=== PATIENT | female | born 1975 | race Two or more races ===

== ENCOUNTER 2024-03-10 06:21 | Inpatient (IN) | payer BC ==
[~2024-03-10] VITALS: Ht 167.6 cm; Wt 59.2 kg
[2024-03-10] VITALS (7 sets, daily range): BP systolic 128–144; BP diastolic 70–81; PULSE 97–121; RESP 13–20; TEMP 97.6–98.4; O2SAT 97–99
[~2024-03-10 06:21] MED LIST: METH-1181 PO; PAR20T PO; PERCOT PO; TRAZ-181 PO
[2024-03-10] MEDS ORDERED: ONDANSETRON HCL 4 MG/2 ML VIAL ONE (07:04)
[2024-03-10] MEDS ORDERED: PROPOFOL 10 MG/ML 20 ML IV ONE ×2 (07:04→09:47)
[2024-03-10] MEDS ORDERED: KETAMINE 50mg/ML 1ml syringe ONE (07:04)
[2024-03-10] MEDS ORDERED: fentaNYL CITRATE 100 MCG/2 ML VL ONE ×2 (07:04)
[2024-03-10] MEDS ORDERED: MIDAZOLAM HCL 2MG/2ML 2ml VIAL (1mg/ml) ONE (07:04)
[2024-03-10] MEDS ORDERED: LIDOCAINE 1% INJ PF 5ML AMP ONE (07:04)
[2024-03-10] MEDS ORDERED: SODIUM CHLORIDE LOCK 50 ML ONE (07:04)
[2024-03-10] MEDS ORDERED: MEPERIDINE HCL (50 MG/ML) 1 ML VIAL ONE (07:04)
[2024-03-10] MEDS ORDERED: fentaNYL CITRATE 100 MCG/2 ML VL IV PRN (07:30)
[2024-03-10] MEDS ORDERED: MORPHINE SULFATE INJ 2 MG/ml SYRG IV PRN ×2 (07:30→11:00)
[2024-03-10] MEDS ORDERED: HYDROmorphone HCL 2 MG/ML VL/or syr IV PRN (07:30)
--- NOTE | 2024-03-10 07:37 | DVHHP2 ---
History Allergies: Coded Allergies: NO KNOWN ALLERGIES (Unverified , 02/25/24) Chief Complaint: back pain, left leg pain Present Illness(Onset/Duration Patient arrived today for elective spine surgery with dr harden for hardware removal placed in apr 2023 Past Surgical History: Other (prior lumbar surgery ) Exam Exam General Appearance: Normal HEENT: Normal ENT Inspection Neck: None, Normal Respiratory: No Accessory Muscle Use, No Respiratory Distress Cardiovascular: No Edema, No JVD Gastrointestinal: none Genitalia: Deferred Pelvic: Deferred Rectal: Deferred Extremities: Normal capillary refill, Normal inspection Neurologic: No Motor Deficits (pain to left leg) Skin: Dry, Normal Color Plan Additional comments: Elective surgery with Dr Harden for deep hardware removal EVELYNE ARENAS NP Mar 10, 2024 07:37
[2024-03-10] MEDS: LIDOCAINE W/ EPINEPHRINE 1% 20ML VIAL ONE (08:29)
[2024-03-10] MEDS ORDERED: NITROGLYCERIN 0.4 MG SL TAB SL PRN (11:00)
[2024-03-10] MEDS ORDERED: ONDANSETRON HCL 4 MG/2 ML VIAL IV PRN (11:00)
[2024-03-10] MEDS ORDERED: ACETAMINOPHEN 325 MG TAB PO PRN (11:00)
--- NOTE | 2024-03-10 11:11 | DVHOP2 ---
Operative Report - 2 Report Details Date: 03/10/24 Preop Diagnosis: retained painful hardware lumbar spine Postop Diagnosis: same as pre op Surgeon: Ubaldo Harden MD Garment Form Assembler: Thuy Gross NP Anesthesiologist: Randy Anesthesia: General Consent: The patient was informed of the risks and benefits of the procedure. These include but are not limited to complications of anesthesia, postoperative infection, incomplete relief of symptoms, recurrence of symptoms, damage to blood vessels, nerves and tendons, deep venous thrombosis, pulmonary embolism and possible need for repeat surgery in the future. Name of Procedure Performed see detailed note Procedure Details Procedure Details: Pre op diagnosis: retained painful hardware lumbar spine post op diagnosis: retained painful hardware lumbar spine Procedure: removal of retained pedicle screw construct lumbar spine surgeon: Dr. Harden Assist: Thuy gross NP Procedure Note: Patient was seen in the Pre Anesthesia Care Unit (PACU) and the operative site was initialed by me. All questions were answered to the patients satisfaction and chart reviewed. The patient was taken to the operative room where pre- operative antibiotics were given 30 minutes prior to incision. General anesthesia was induced and neuro-monitoring leads placed. Maravilla catheter was placed. The patient was turned prone onto the I-Lamberto spinal table. While positioning, I made sure that the belly was free to allow proper expansion of the lungs. The hips were extended and all bony prominences padded. The shoulders were abducted 80 degree and the elbows flexed 100 degrees with no tension on the brachial plexus. I check the foot arterial pulses and they were palpable. The patient was prepped and draped and time out was taken at this time per usual protocol. At this time, the C-arm fluoroscope was brought in and was used to cat the incision borders proximally and distally. I marked out the old incision and brought in a Saniya to localized the pedicle screw construct. I jaeger an incision using a 10 blade down to the lumbodorsal fascia. Using bovie electrocautery, I incised through the fascia na dlasterally localizing the pedicle screw constructs on each side. I removed them without difficulty. I sent one screw for culture as a precaution I used irisept and a 50-50 peroxide solution and then placed deep hemovac drains. I used 0 vicryl to close the deep fascia and then 2-0 vicryl for SQ tissue then running nylon to close. FABIAN dressing then extubated and taken to pacu in unremarkable condition. Condition Good Disposition Still a Patient UBALDO HARDEN MD Mar 10, 2024 11:11
[2024-03-10] MEDS: HYDROmorphone HCL 2 MG/ML VL/or syr IV PRN (11:22)
[2024-03-10] MEDS: ACETAMINOPHEN IV 100 ML IV ONE (11:41)
[2024-03-10] MEDS: ACETAMINOPHEN IV 1000 MG/100ML (10MG/ML) IV PRN (11:45)
[2024-03-10] MEDS: KETOROLAC TROMETH 30 MG/ML 1ML VIAL IV ONE (12:10)
[2024-03-10] MEDS: LIDOCAINE 2% JELLY 11ml (GLYDO) ONE (12:31)
[2024-03-10] MEDS: TRANEXAMIC ACID 20 ML ONE (12:31)
[2024-03-10] MEDS: levoFLOXacin 500MG 100 ML IV ONE (12:31)
[2024-03-10] MEDS: SUCCINYLCHOLINE CHLORIDE 20 MG/ML 10ML VIAL IV ONE (12:32)
[2024-03-10] MEDS: ceFAZolin 2 GM/D5W100ml 100 ML IV ONE (12:32)
[2024-03-10] MEDS: ROCURONIUM 10MG/ML 10ML VIAL IV ONE (12:32)
[2024-03-10] MEDS: METOCLOPRAMIDE HCL 5MG/ml INJ 2ml VIAL IV ONE (12:32)
[2024-03-10] MEDS: HYDROcodone-ACET 10/325MG TAB PO PRN (14:10)
[2024-03-10] MEDS: CYCLOBENZAPRINE HCL 10 MG TAB PO SCH (14:10)
[2024-03-10] MEDS: D5W/SOD CHLO 0.9% 1,000 ML IV SCH (14:12)
[2024-03-10] MEDS: ceFAZolin 1GM/50ML 50 ML IV SCH (14:16)
[2024-03-10] MEDS: MORPHINE SULFATE INJ 2 MG/ml SYRG IV PRN (16:45)
[2024-03-10] MEDS: DOCUSATE SOD 100 MG CAP PO SCH (21:48)
[2024-03-11] VITALS (8 sets, daily range): BP systolic 110–141; BP diastolic 65–76; PULSE 72–94; RESP 12–20; TEMP 97.7–98.9; O2SAT 90–100
--- NOTE | 2024-03-11 09:25 | DVH ---
C-ARM FLUOROSCOPY: PROCEDURE: Spinal hardware removal FLUOROSCOPY TIME: 18 seconds
--- NOTE | 2024-03-11 09:25 | DVH ---
C-ARM FLUOROSCOPY: PROCEDURE: Spinal hardware removal FLUOROSCOPY TIME: 18 seconds
[2024-03-11] MEDS: MORPHINE SULFATE INJ 2 MG/ml SYRG IV ONE (13:30)
--- NOTE | 2024-03-11 15:02 | DVHINCON2 ---
Date Seen: Mar 11, 2024 Referring Physician Orthopedic spine surgery,Dr Ubaldo Harden. Reason for Consultation Medical management. History of Present Illness 48-year-old female with a known history of lumbar radiculopathy status post lumbar spine surgery in April,, but brought in by orthopedic spine/GFR painful hardware removal from the previous site of surgery. Patient stated that she was having back pain with radiation to the left lower extremity has right lower extremity. Patient denies any known medical history besides chronic i nsomnia and anxiety disorder. Past Medical History Anxiety disorder Chronic insomnia Chronic back pain Past Surgical History lumbar radiculopathy status post L3-4-5 spine surgery in April,. Status post painful hardware removal from the lumbar [id number]. Family History: Hypertension G8 MOTHER G8 FATHER Allergies: Coded Allergies: NO KNOWN ALLERGIES (Unverified , 02/25/24) Home Meds Active Scripts Oxycodone W/ Acetaminophen (Percocet 5/325MG) 1 Tab Tb, 1 TAB PO TID, #20 TAB Prov:YANET CELIS MD 04/28/23 Reported Medications Trazodone HCl (Trazodone Hydrochloride) 50 Mg Tab, 50 MG PO, TAB 02/25/24 Paroxetine (PAXIL TABLET) 20 Mg Tb, 20 MG PO for 30 Days 02/25/24 Methocarbamol (Methocarbamol) 500 Mg Tab, 500 MG PO for 30 Days, MG 02/25/24 Current Medications Current Medications Medications (Trade) Dose Ordered Sig/Ana Route PRN Reason Start Time Stop Time Status Last Admin Docusate Sodium (Colace Capsule) 100 mg BID PO 03/10/24 22:00 03/11/24 09:54 Review of Systems Twelve review of systems are negative except mentioned above. 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 1. Anxiety disorder 2. Chronic insomnia 3. Lumbar radiculopathy status post painful hardware removal with previous history of lumbar spine surgery atL3/4/5 -pain meds as needed, DVT GI prophylaxis, discharge plan per Orthopedics. Plan discussed with: Patient Date of Service: Mar 11, 2024 Billing Provider: YANET CELIS MD Common Visit Codes: NOT BILLABLE YANET CELIS MD Mar 11, 2024 15:02
[2024-03-12] VITALS (7 sets, daily range): BP systolic 116–143; BP diastolic 69–91; PULSE 74–95; RESP 16–20; TEMP 97.7–98.5; O2SAT 95–100
[2024-03-13] VITALS (7 sets, daily range): BP systolic 128–171; BP diastolic 82–102; PULSE 77–87; RESP 16–18; TEMP 97.7–98.9; O2SAT 94–99
--- NOTE | 2024-03-13 16:15 | DVHDS2 ---
Discharge Summary Date of Admission Mar 10, 2024 at 10:55 Date of Discharge: Mar 13, 2024 Admitting Diagnosis post laminectomy syndrome lumbar spine Brief Hx & Hospital Course: pt. was admitted for elective spine surgery once she tolerated po pain meds and passed P.T., plan made to d/c home she will f/u in 10 for wound check Operations or Procedures see detailed note Condition at Discharge: Good Final Diagnosis/Problems List same as pre op Discharge Disposition: Home Discharge Instruct/Medications Diet: Regular Activity: No Restrictions, As Tolerated Discharge Statement: "Patient was advised to return to the ER or call 911 if any headaches, dizziness, shortness of breath, chest pain, abdominal pain, bleeding, fevers, or worsening of medical condition. Patient was counseled about treatment plan, medications, possible side effects, patientverbalized understanding. All questions were answered to the best of my ability. This discharge took greater then 30 minutes in planning, reviewing documentation, counseling the patient, and discussing with other team members." ASSESSMENT ASSESSMENT Assessment same as pre op MIKE REINOSO MD Mar 13, 2024 16:15
== END 2024-03-13 19:00 | disposition home or self-care (01) | DRG 909 ==
LOC: SUR 06:21 → TELE 10:55 → TELE-WESTW 13:18 → WEST WING 03-11 06:38
PROVIDERS: ADMIT Orthopaedic Surgery; ATTEND Internal Medicine
PROC: 4A11X4Z Monitoring of Peripheral Nervous Electrical Activity, External Approach (ICD-10-PCS; 2024-03-10)
PROC: 0QP004Z Removal of Internal Fixation Device from Lumbar Vertebra, Open Approach (ICD-10-PCS; principal; 2024-03-10 07:42)
DX: T85.848A Pain due to other internal prosthetic devices, implants and grafts, initial encounter (principal); Y83.8 Other surgical procedures as the cause of abnormal reaction of the patient, or of later complication, without mention of misadventure at the time of the procedure; M54.16 Radiculopathy, lumbar region; M96.1 Postlaminectomy syndrome, not elsewhere classified; F51.04 Psychophysiologic insomnia; F41.9 Anxiety disorder, unspecified; G89.29 Other chronic pain; Z82.49 Family history of ischemic heart disease and other diseases of the circulatory system; Z79.891 Long term (current) use of opiate analgesic; Z79.899 Other long term (current) drug therapy; Y92.89 Other specified places as the place of occurrence of the external cause
CPT/HCPCS: 72100; 76000; 86850; 86900; 86901; 87070; 87075; 87077; 87186; 87205; 97110; 97116; 97163; G0378; J0131; J0330; J1885; J1956; J2250; J2405; J2704; J7042